=== PATIENT | male | born 1980 | race African-American/Black ===

== ENCOUNTER 2017-07-30 10:17 | Emergency (ER) | payer SELFPAY ==
[2017-07-30 10:20] VITALS: BP 162/903
== END 2017-07-30 10:52 | disposition home or self-care (01) ==
LOC: ED 10:17
DX: S01.312D Laceration without foreign body of left ear, subsequent encounter (principal); X58.XXXD Exposure to other specified factors, subsequent encounter

== ENCOUNTER 2017-11-02 22:07 | Emergency (ER) | payer SELFPAY | END 2017-11-02 23:33 | disposition left against medical advice (07) | LOC: ED 22:07 | DX: Z53.21 Procedure and treatment not carried out due to patient leaving prior to being seen by health care provider (principal) ==

== ENCOUNTER 2017-11-02 22:48 | Emergency (ER) | payer SELFPAY ==
[~2017-11-02] VITALS: Ht 182.9 cm; Wt 68.0 kg
[2017-11-02 23:35] VITALS: BP 137/79
== END 2017-11-02 23:35 | disposition home or self-care (01) ==
LOC: ED 22:48
DX: H66.93 Otitis media, unspecified, bilateral (principal)